=== PATIENT | male | born 1935 | race Caucasian/White ===

== ENCOUNTER 2022-03-09 02:44 | Emergency (ER) | payer OTHER ==
[~2022-03-09] VITALS: Ht 167.6 cm; Wt 87.5 kg
--- NOTE | 2022-03-09 03:17 | NUR ---
MADHURI FOR C/O GLF AT APPRX 2200. PT STATES HE WAS TRYING TO GET UP FROM COUCH AND HIS LEGS GAVE OUT FROM UNDER HIM. DENIES HEAD TRAUMA OR KO. STATES HE HAD ANOTHER FALL ON TUESDAY AND HURT HIS WRISTS, WHICH WAS WHY HE WAS UNABLE TO GET UP OFF THE FLOOR ONCE HE FELL. PRESENTS WITH BRUISING TO BILATERAL UPPER EXTREMITIES AND L BROW WHICH HE STATES WERE FROM HIS PREVIOUS FALL WELL LOWER EXTREMITY EDEMA HE TREATS WITH LASIX. PT ORIENTED X4 BREATHING EVEN AND UNLABORED. CHANGED INTO GOWN AND PLACED ON MONITOR AND V/S WNL.
[2022-03-09] MEDS ORDERED: FUROSEMIDE 20 MG/2 ML VIAL IV ONE (03:30)
[2022-03-09] MEDS ORDERED: POTASSIUM CHLORIDE 20 MEQ TAB.PRT.SR PO ONE ×2 (03:30→03:36)
--- NOTE | 2022-03-09 03:30 | NUR ---
20G IV ESTABLISHED AT . BLOOD DRAWN AND SENT TO LAB
--- NOTE | 2022-03-09 03:34 | NUR ---
COVID SWAB COLLECTED AND SENT TO LAB
[2022-03-09] MEDS ORDERED: FUROSEMIDE 20 MG/2 ML VIAL ONE (03:36)
[2022-03-09 03:52] LABS: BASOPHILS % (AUTO) 0.3 % (0.0-2.0); EOSINOPHILS % (AUTO) 0.1 % (0.0-6.0); HEMATOCRIT 35 % (39-51); HEMOGLOBIN 11.5 g/dL (13.5-17.5); LYMPHOCYTES # (AUTO) 1.3 K/uL (0.8-4.8); MEAN CORPUSCULAR HGB CONC 33 g/dl (31.0-36.0); MEAN CORPUSCULAR VOLUME 87 fL (80-96); MONOCYTES # (AUTO) 1.4 K/uL (0.1-1.30); MONOCYTES % (AUTO) 10.9 % (2.0-12.0); NEUTROPHILS # (AUTO) 10.4 K/uL (1.8-8.9); NEUTROPHILS % (AUTO) 78.7 % (43.0-81.0); PLATELET COUNT (AUTO) 205 K/uL (150-450); RED BLOOD CELL COUNT(AUTO) 4.01 MIL/uL (4.5-6.0); WHITE BLOOD COUNT (AUTO) 13.2 K/uL (4.3-11.0)
[2022-03-09 04:21] LABS: CALCIUM, SERUM 8.1 mg/dL (8.5-10.1); CARBON DIOXIDE 28 mmol/L (21-32); CHLORIDE 99 mmol/L (98-107); CREATININE 1.4 mg/dL (0.6-1.3); GLUCOSE 122 mg/dL (74-106); POTASSIUM 3.8 mmol/L (3.5-5.1); SODIUM SERUM 136 mmol/L (136-145); UREA NITROGEN, BLOOD 22 mg/dL (7-18)
--- NOTE | 2022-03-09 04:56 | NUR ---
DR. GEO OTERO SPEAKING TO ELAN OTERO
--- NOTE | 2022-03-09 05:07 | NUR ---
PT GOING TO [facility] UNDER DR CRONIN. NUMBER FOR REPORT . [facility] WILL BE HERE AT 0600.
[2022-03-09 05:11] VITALS: BP 138/64
--- NOTE | 2022-03-09 05:36 | NUR ---
REPORT GIVEN TO CATY
--- NOTE | 2022-03-09 05:47 | NUR ---
REPORT GIVEN TO PR[facility] UNIT 91. PT CHART AND TRANSFER FORM PROVIDED TO ATTORNEY. ALL V/S STABLE AT TIME OF TRANSFER.
== END 2022-03-09 05:50 | disposition short-term general hospital (02) ==
LOC: ER 02:49
DX: R29.6 Repeated falls (principal); R60.0 Localized edema; Z20.822 Contact with and (suspected) exposure to COVID-19; I11.0 Hypertensive heart disease with heart failure; I50.9 Heart failure, unspecified; Z88.0 Allergy status to penicillin; D64.9 Anemia, unspecified; N28.9 Disorder of kidney and ureter, unspecified; D72.829 Elevated white blood cell count, unspecified
CPT/HCPCS: 99285; 96374; 87426; 85025; 80048; 83735; 36415; 83880; J1940; C9803

== ENCOUNTER 2024-01-26 00:54 | Emergency (ER) | payer OTHER ==
[~2024-01-26] VITALS: Ht 180.3 cm; Wt 79.4 kg
[2024-01-26] MEDS: IV NS 0.9% 1,000 ML BAG IV ONE (01:29)
[2024-01-26 01:34] LABS: BASOPHILS # (AUTO) 0.1 K/uL (0.0-0.2); BASOPHILS % (AUTO) 0.5 % (0.0-2.0); EOSINOPHILS % (AUTO) 0.4 % (0.0-6.0); HEMATOCRIT 37 % (39-51); HEMOGLOBIN 12.6 g/dL (13.5-17.5); LYMPHOCYTES # (AUTO) 1.5 K/uL (0.8-4.8); LYMPHOCYTES % (AUTO) 12.6 % (20.0-44.0); MEAN CORPUSCULAR HEMOGLOBIN 30 PG (26.0-33.0); MEAN CORPUSCULAR HGB CONC 34 g/dl (31.0-36.0); MEAN CORPUSCULAR VOLUME 87 fL (80-96); MONOCYTES # (AUTO) 0.8 K/uL (0.1-1.30); MONOCYTES % (AUTO) 6.7 % (2.0-12.0); NEUTROPHILS # (AUTO) 9.3 K/uL (1.8-8.9); NEUTROPHILS % (AUTO) 79.8 % (43.0-81.0); PLATELET COUNT (AUTO) 181 K/uL (150-450); RED BLOOD CELL COUNT(AUTO) 4.25 MIL/uL (4.5-6.0); RED CELL DISTRIBUTION WIDTH 15.3 % (11.5-15.0); WHITE BLOOD COUNT (AUTO) 11.6 K/uL (4.3-11.0)
[2024-01-26 01:43] LABS: CALCIUM, SERUM 9.3 mg/dL (8.5-10.1); CARBON DIOXIDE 29 mmol/L (21-32); CHLORIDE 103 mmol/L (98-107); CREATININE 1.5 mg/dL (0.6-1.3); GLUCOSE 132 mg/dL (74-106); POTASSIUM 4.3 mmol/L (3.5-5.1); SODIUM SERUM 142 mmol/L (136-145); UREA NITROGEN, BLOOD 23 mg/dL (7-18)
[2024-01-26 01:45] LABS: INR 1.01 (0.91-1.10); PARTIAL THROMBOPLASTIN TIME 31.6 SEC (24.3-34.3); PROTHROMBIN TIME 10.7 SECS (9.2-11.1)
[2024-01-26 01:50] LABS: ALANINE AMINOTRANSFERASE 14 U/L (12-78); ALBUMIN 3.3 g/dL (3.4-5.0); ALKALINE PHOSPHATASE 91 U/L (46-116); ASPARTATE AMINOTRANSFERASE 23 U/L (15-37); BILIRUBIN,DIRECT 0.2 mg/dL (0.0-0.2); BILIRUBIN,TOTAL 0.8 mg/dL (0.2-1.0)
[2024-01-26] MEDS: LEVOFLOXACIN 750 MG /D5W 150ML 150 ML IV ONE (02:30)
[2024-01-26] MEDS ORDERED: LEVOFLOXACIN 750 MG /D5W 150ML 150 ML IV ONE (02:37)
[2024-01-26 02:51] LABS: APPEARANCE,URINE CLEAR (CLEAR); BILIRUBIN,URINE NEGATIVE (NEGATIVE); BLOOD, URINE NEGATIVE Ery/uL (NEGATIVE); COLOR,URINE YELLOW (YELLOW); KETONES,URINE 1+ mg/dL (NEGATIVE); LEUKOCYTE ESTERASE ,URINE NEGATIVE (NEGATIVE); NITRITE, URINE NEGATIVE (NEGATIVE); PROTEIN,URINE NEGATIVE (NEGATIVE); UGLUCOSE NEGATIVE (NEGATIVE); UROBILINOGEN,URINE 0.2 EU/dL (0.2)
[2024-01-26 02:52] LABS: ADD URINE CULTURE NO; BACTERIA,URINE Rare /HPF (None Seen); RBC,URINE 0-2 /HPF (0-2); SQUAMOUS EPITHELIAL CELL,UR Few /HPF (None Seen); WBC,URINE 0-2 /HPF (0-3)
[2024-01-26 04:52] VITALS: BP 122/65; TEMP 98.4; O2SAT 96
== END 2024-01-26 04:53 | disposition short-term general hospital (02) ==
LOC: ER 01:03
DX: N17.9 Acute kidney failure, unspecified (principal); J18.9 Pneumonia, unspecified organism; R53.1 Weakness; R51.9 Headache, unspecified; R42 Dizziness and giddiness; I10 Essential (primary) hypertension; Z88.0 Allergy status to penicillin
CPT/HCPCS: 99291; 96365; 70450; 96361; 93005; 71045; 85025; 80048; 80076; 81001; 36415; 84484; 85730; J7030; J1956